=== PATIENT | male | born 1990 | race Caucasian/White ===

== ENCOUNTER 2017-05-08 00:32 | Emergency (ER) | payer OTHER ==
--- NOTE | 2017-05-08 01:22 | ED ---
Throat Pain/Nasal Congestion - HPI Summary HPI Summary: 27 male presents to ED with complaints of left bottom dental pain that began 2- 3 days ago and has been worsening since. Patient states he has been taking tylenol/ibuprofen without significant relief. Has also been applying temporary filler. Thinks his cavity caused trauma to tooth and is not possibly infected. Admits to some minimal swelling and swollen lymph nodes. States the pain radiates into left sinus and ear area. No fever/chills, nausea, vomiting, trouble swallowing or trouble breathing. No other complaints. No PMHx. No medications since 3pm when he took ibuprofen/tylenol. - History of Current Complaint Chief Complaint: EDDentalPain Time Seen by Provider: 05/08/17 01:20 Hx Obtained From: Patient Onset/Duration: Sudden Onset, Lasting Days, Still Present Severity: Moderate Cough: Nonproductive - Allergies/Home Medications Allergies/Adverse Reactions: Allergies Allergy/AdvReac Type Severity Reaction Status Date / Time No Known Allergies Allergy Verified 05/08/17 00:37 PMH/Surg Hx/FS Hx/Imm Hx Endocrine/Hematology History: Denies: Hx Diabetes Cardiovascular History: Denies: Hx Hypertension Respiratory History: Denies: Hx Asthma - Surgical History Surgery Procedure, Year, and Place: n/a - Immunization History Immunizations Up to Date: Yes Infectious Disease History: No Infectious Disease History: Denies: Traveled Outside the [place] in Last 30 Days - Family History Known Family History: Positive: None - Social History Alcohol Use: Occasionally Substance Use Type: Reports: None Smoking Status (MU): Heavy Every Day Tobacco Smoker Review of Systems Constitutional: Negative Positive: Dental Pain, Ear Ache Cardiovascular: Negative Respiratory: Negative Neurological: Negative All Other Systems Reviewed And Are Negative: Yes Physical Exam Triage Information Reviewed: Yes Vital Signs On Initial Exam: Initial Vitals Temp Pulse Resp BP Pulse Ox 98 F 72 16 125/79 98 05/08/17 00:35 05/08/17 00:35 05/08/17 00:35 05/08/17 00:35 05/08/17 00:35 Vital Signs Reviewed: Yes Appearance: Positive: Well-Appearing, No Pain Distress, Well-Nourished Skin: Positive: Warm, Skin Color Reflects Adequate Perfusion, Dry. Negative: Cold Head/Face: Positive: Normal Head/Face Inspection ENT: Positive: Normal ENT inspection, Hearing grossly normal, Pharynx normal, TMs normal, Uvula midline - airway patent. Negative: TM bulging, TM dull, TM red, Tonsillar swelling, Tonsillar exudate, Trismus Dental: Positive: Gross Decay/Caries @, Dental Fracture @ - left bottom tooth 20 erythema and some external edema palapted, no abscess appreciated, Cervical Lymphadenopathy - left tonsillar Neck: Positive: Supple, Nontender Respiratory/Lung Sounds: Positive: Clear to Auscultation, Breath Sounds Present. Negative: Rales, Rhonchi, Wheezes Cardiovascular: Positive: Normal, RRR, Pulses are Symmetrical in both Upper and Lower Extremities. Negative: Murmur, Rub Neurological: Positive: Normal, Sensory/Motor Intact Diagnostics - Vital Signs Vital Signs Temp Pulse Resp BP Pulse Ox 05/08/17 00:35 98 F 72 16 125/79 98 - Laboratory Lab Statement: Any lab studies that have been ordered have been reviewed, and results considered in the medical decision making process. EENT Course/Dx - Course Course Of Treatment: appears to be suffering from toothache/dental infection beginnings. fluids, salt water gargles and pain control. given norco and amoxicillin while in ED. continue at home with ibuprofen. good oral hygeine. follow up with dentist. topical agents also suggested. no other concerns at this time. aware of worsening signs and symptoms. pe normal, vitals normal. patient agrees and understands. all questions answered - Differential Diagnoses Differential Diagnoses: Dental Abscess, Dental Caries, Fractured Tooth - Diagnoses Provider Diagnoses: Toothache, Dental infection Discharge - Discharge Plan Condition: Stable Disposition: HOME Prescriptions: Amoxicillin PO (*) [Amoxicillin 500 MG CAP*] 500 mg PO Q12H #19 cap HYDROcodone/ACETAMIN 5-325 MG* [[place] 5-325 TAB*] 1 tab PO Q6H PRN #8 tab MDD 2 PRN Reason: Pain Patient Education Materials: Dental Abscess (ED), Toothache (ED) Referrals: [facility] [Outside] Additional Instructions: continue ibuprofen for pain and inflammation. pain medication as needed for breakthrough pain. salt water gargles and good oral hygeine. also recommend topical numbing agents and fillers as you are already using. antibiotic to prevent/treat infection. cool compresses for pain and swelling. follow up with dentist. any new or worsening symptoms please seek medical attention promptly.
[2017-05-08] MEDS ORDERED: HYDROcodone/ACETAMIN 5-325 MG* 1 TAB PO ONE (01:47)
[2017-05-08] MEDS ORDERED: Amoxicillin PO (*) 250 MG CAP PO ONE (01:47)
[2017-05-08 02:51] VITALS: BP 140/98
== END 2017-05-08 02:40 | disposition home or self-care (01) ==
LOC: ED 00:32
DX: K04.7 Periapical abscess without sinus (principal); F17.200 Nicotine dependence, unspecified, uncomplicated
CPT/HCPCS: 99282; A9270-GY